=== PATIENT | male | born 1950 | race Caucasian/White ===

== ENCOUNTER → 2019-10-01 10:41 | Outpatient (BNVA) | payer MEDICARE, SELFPAY | PROVIDERS: Family Provider Nurse Practitioner Family; PCP Nurse Practitioner Family; Visit Provider Registered Nurse | DX: E11.9 Type 2 diabetes mellitus without complications (principal) | CPT/HCPCS: 80053; 80061; 83036 ==

== ENCOUNTER → 2020-03-02 11:54 | Outpatient (BNVA) | payer MEDICARE, SELFPAY | PROVIDERS: Family Provider Nurse Practitioner Family; PCP Nurse Practitioner Family; Visit Provider Registered Nurse | DX: E11.9 Type 2 diabetes mellitus without complications (principal); I10 Essential (primary) hypertension | CPT/HCPCS: 83036 ==

== ENCOUNTER 2020-04-28 14:48 | Emergency (ER) | payer MEDICARE, SELFPAY ==
[2020-04-28 15:00] VITALS: BP 164/65; PULSE 62; RESP 14; TEMP 37.2; O2SAT 96; BMI 37.3
--- NOTE | 2020-04-28 15:06 | ECG_ITS ---
[facility] Test Date: 2020-04-28 Pat Name: Angelo Pablo Department: Room: Gender: Male Certified Medicine Aide: WAQAR : 1950 Requested By: Lizzy Haq Order Number: [id number] Reading MD: Measurements Intervals [place] Rate: 62 P: 44 RI: 168 QRS: 21 QRSD: 136 T: 23 QT: 416 QTc: 424 Interpretive Statements SINUS RHYTHM RIGHT BUNDLE BRANCH BLOCK [120+ ms QRS DURATION, UPRIGHT V1, 40+ ms S IN I/aVL/V4/V5/V6] No previous ECG available for comparison [id number]
--- NOTE | 2020-04-28 15:07 | XR_ITS ---
WS: [id number] Exam: XR chest 1V portable [id number] Date/Time of Exam: 04/28/2020 3:07 PM Reason For Exam: cp Findings: No priors. The lungs are clear and fully expanded. Cardiomediastinal structures are unremarkable for technique. No pleural effusions. Mild pleural thickening noted along the lower lateral left pleural cavity. Jodi toring leads superimpose the chest. XR/XR chest 1V portable [id number] IMPRESSION: 1. No acute cardiopulmonary finding.
[2020-04-28 15:26] VITALS: O2SAT 94
[2020-04-28 15:32] LABS: Basophils % 0.3 %; Eosinophils % 0.3 %; Hematocrit 44.6 % (42.0-52.0); Lymphocytes # 1.1 10^3/uL (0.8-4.8); Lymphocytes % 14.2 %; Mean Corpuscular HGB Conc 33.6 g/dL (30.0-36.0); Mean Corpuscular Hemoglobin 31.3 pg (28.0-34.0); Mean Corpuscular Volume 93.1 fL (80-94); Mean Platelet Volume 9.5 fL (7.4-10.4); Monocytes # 0.4 10^3/uL (0.2-0.9); Monocytes % 5.8 %; Nucleated Red Blood Cells % 0 %; Platelet Count 225 10^3/cmm (130-400); Red Blood Count 4.79 10^6/uL (4.1-5.3); Red Cell Distribution Width 12.9 % (12.1-15.1); White Blood Count 7.5 10^3/uL (4.0-10.0)
--- NOTE | 2020-04-28 15:34 | W.ED.CHESTPA ---
HPI - Chest Pain General: Chief Complaint: Chest Pain Stated Complaint: CHEST PAIN Time Seen by Provider: 04/28/20 15:06 Source: patient Mode of arrival: ambulatory Limitations: no limitations History of Present Illness: HPI narrative: 69-year-old male who states that he has been having indigestion over the last 2 days. He states he had a burning sensation and a lot of belching over the last 2 days. He does not take any antacids. He states he is concerned it could be his heart because it radiates to his chest. He denies any shortness of breath. He denies any nausea. Denies any worsening improving factors. Associated symptoms: Reports abdominal pain and nausea; Deny dyspnea or fever(s) Review of Systems Const: Denies: fever(s), chills, body aches or change in appetite Eyes: Denies: blurry vision or eye discomfort ENMT: Denies: throat pain or dental pain Card: Denies: chest pain Resp: Denies: dyspnea GI: Reports: abdominal pain and nausea : Denies: dysuria Musc: Denies: neck pain or back pain Skin/Breast: Denies: rash Neuro: Denies: headache(s) Psych: Denies: depression Kirill/Lymph: Denies: easy bruising All/Imm: Denies: urticaria PFSH ED PFSH: Medical History Essential hypertension Type 2 diabetes mellitus Social History Smoking and tobacco status: never smoked Alcohol intake: never Adopted: No Caregiver/support person: No Lives independently: No Household members: spouse Marital status: Current occupational status: retired Current gender identity: Male Physical Exam Const: COMMON NORMALS: no acute distress, patient oriented x3 and healthy appearing HENMT: COMMON NORMALS: normocephalic and atraumatic HEAD & SCALP: normocephalic and atraumatic Eye: COMMON NORMALS: Equal, round and reactive pupils present and EOMs intact bilaterally PUPIL: Yes Equal, round and reactive pupils present Neck/C-Spine: COMMON NORMALS: full ROM and supple Chest: COMMONS NORMALS: normal inspection of the chest and normal palpation of entire chest wall Resp: COMMON NORMALS: normal respiratory effort, No retractions, No use of accessory muscles and clear to auscultation bilaterally AUSCULTATION: clear to auscultation bilaterally Cardio: COMMON NORMALS: regular rate, regular rhythm and No murmurs present (Cardio) RATE: regular rate RHYTHM: regular rhythm GI: COMMON NORMALS: Normal to inspection, nondistended, normoactive bowel sounds present, Soft to palpation, non-tender and no masses PALPATION: Yes Soft to palpation Extremity: COMMON NORMALS: normal to inspection and full ROM Neuro: COMMON NORMALS: patient oriented x3, moves all extremities and no focal motor deficits Psych: COMMON NORMALS: mental status grossly normal, Normal thought process present and cooperative THOUGHT PROCESS: Normal thought process present Skin: COMMON NORMALS: no rashes or lesions noted and no wounds GENERAL SKIN EXAM: no rashes or lesions noted Course Vital Signs: Vital signs: Vital Signs Temperature 99.0 F 04/28/20 15:00 Pulse Rate 59 L 04/28/20 18:45 Respiratory Rate 21 H 04/28/20 18:45 Blood Pressure 130/75 04/28/20 18:45 Pulse Oximetry 90 04/28/20 18:45 MDM - Chest Pain MDM Narrative: Medical decision making narrative: Angelo presents here with chest pain along with epigastric normal pain. Most of his pain seems to be gastric in nature and likely reflux. He has no signs of acute coronary syndrome and 2-hour troponin is negative. Is no signs of dissection or pulmonary embolism. He feels improved after GI cocktail will start him on Protonix. Patient is to follow-up his PCP in 3 to 5 days and return to ER if worsening. He understands agrees to plan. Lab Data: Labs: Lab Results 04/28/20 04/28/20 04/28/20 Range/Units 15:20 15:20 15:20 WBC 7.5 (4.0-10.0) 10^3/ uL RBC 4.79 (4.1-5.3) 10^6/u L Hgb 15.0 (11.7-16.6) g/dL Hct 44.6 (42.0-52.0) % MCV 93.1 (80-94) fL MCH 31.3 (28.0-34.0) pg MCHC 33.6 (30.0-36.0) g/dL RDW 12.9 (12.1-15.1) % Plt Count 225 (130-400) 10^3/c mm MPV 9.5 (7.4-10.4) fL Neut % (Auto) 79.0 % Lymph % (Auto) 14.2 % Gregg % (Auto) 5.8 % Eos % (Auto) 0.3 % Baso % (Auto) 0.3 % Neut # (Auto) 5.90 (1.8-7.7) 10^3/u L Lymph # (Auto) 1.1 (0.8-4.8) 10^3/u L Gregg # (Auto) 0.4 (0.2-0.9) 10^3/u L Eos # (Auto) 0.0 (0.0-0.8) 10^3/u L Baso # (Auto) 0.0 (0.0-0.1) 10^3/u L Nucleated RBC % (a uto) 0 % Nucleated RBCs # 0.0 /100WBC Sodium 135 L (136-145) mmol/L Potassium 4.3 (3.5-5.1) mmol/L Chloride 98 (98-107) mmol/L Carbon Dioxide 26 (22-29) mmol/L Anion Gap 15.3 (5-19) BUN 10 (8-23) mg/dL Creatinine 0.8 (0.7-1.2) mg/dL GFR Calculation 95.6 (90-130) mL/min Glucose 126 H (65-115) mg/dL Calculated Osmolal ity 281 L (285-295) mOsm/k g Calcium 9.6 (8.5-10.5) mg/dL Total Bilirubin 0.5 (0.15-1.2) mg/dL AST 33 (0-40) U/L ALT 32 (0-41) U/L Alkaline Phosphata se 70 (40-130) IU/L Troponin T Baselin e 23 H (0-15) ng/L Troponin T 120 Min los (0-15) ng/L Delta Troponin T (0-10) ABS# Total Protein 6.8 (6.6-8.7) g/dL Albumin 4.4 (3.5-5.2) g/dL Globulin 2.4 (1.3-4.6) g/dL Lipase 21 (13-60) U/L 04/28/ Range/Units 17:27 WBC (4.0-10.0) 10^3/ uL RBC (4.1-5.3) 10^6/u L Hgb (11.7-16.6) g/dL Hct (42.0-52.0) % MCV (80-94) fL MCH (28.0-34.0) pg MCHC (30.0-36.0) g/dL RDW (12.1-15.1) % Plt Count (130-400) 10^3/c mm MPV (7.4-10.4) fL Neut % (Auto) % Lymph % (Auto) % Gregg % (Auto) % Eos % (Auto) % Baso % (Auto) % Neut # (Auto) (1.8-7.7) 10^3/u L Lymph # (Auto) (0.8-4.8) 10^3/u L Gregg # (Auto) (0.2-0.9) 10^3/u L Eos # (Auto) (0.0-0.8) 10^3/u L Baso # (Auto) (0.0-0.1) 10^3/u L Nucleated RBC % (a uto) % Nucleated RBCs # /100WBC Sodium (136-145) mmol/L Potassium (3.5-5.1) mmol/L Chloride (98-107) mmol/L Carbon Dioxide (22-29) mmol/L Anion Gap (5-19) BUN (8-23) mg/dL Creatinine (0.7-1.2) mg/dL GFR Calculation (90-130) mL/min Glucose (65-115) mg/dL Calculated Osmolal ity (285-295) mOsm/k g Calcium (8.5-10.5) mg/dL Total Bilirubin (0.15-1.2) mg/dL AST (0-40) U/L ALT (0-41) U/L Alkaline Phosphata se (40-130) IU/L Troponin T Baselin e (0-15) ng/L Troponin T 120 Min los 25.40 H (0-15) ng/L Delta Troponin T 2.40 (0-10) ABS# Total Protein (6.6-8.7) g/dL Albumin (3.5-5.2) g/dL Globulin (1.3-4.6) g/dL Lipase (13-60) U/L Imaging Data^: CXR: Attestation: I personally reviewed and interpreted this imaging study as follows: My impression: no acute abnormality EKG Data^: EKG 1: Attestation: I personally reviewed and interpreted this EKG as follows: EKG interpretation date: 04/28/20 EKG interpretation time: 14:58 Interpretation: nsr hr [address] or t wave abnormalities qrs 136 qtc 421 EKG 2: Attestation: I personally reviewed and interpreted this EKG as follows: EKG interpretation date: 04/28/20 EKG interpretation time: 17:24 Interpretation: nsr hr [address] or t wave abnormalities qrs 142 qtc 424 Discharge Plan Discharge Patient Disposition: Home Clinical Impression: Atypical chest pain Abdominal pain Qualifiers: Abdominal location: epigastric Qualified Code(s): R10.13 - Epigastric pain Condition: Stable Prescriptions: New Protonix 40 mg tablet,delayed release (DR/EC) 40 mg PO DAILY Qty: 60 RF: 0 No Action metformin 500 mg tablet 500 mg PO BID RF: 0 lisinopril 20 mg tablet 20 mg PO DAILY RF: 0 Discharge Orders: Discharge Order (Routine); Ordered 04/28/20 Ordered By: Lizzy Haq Referrals: Greyson Ramires FNP [Primary Care Provider] - Discharge Diet: Advance as tolerated Discharge Activity: Resume usual activity Patient Instructions: Abdominal Pain (ED) Coding Level of Care Code ED Transmission Systems Operator for Chg Fwd Exam Comprehensive
[2020-04-28] MEDS: ondansetron 2 mg/ML SDV 2 mL 4 MG IVP (15:39)
[2020-04-28] MEDS: lidocaine 2% viscous 15 ML, aluminum-mag hydrox-simethicon 30 ML, sucralfate oral liq 1 GM PO (15:39)
[2020-04-28 15:43] VITALS: BP 156/96; PULSE 66; O2SAT 94
[2020-04-28 15:55] LABS: Alanine Aminotransferase 32 U/L (0-41); Albumin Level 4.4 g/dL (3.5-5.2); Alkaline Phosphatase 70 IU/L (40-130); Blood Urea Nitrogen 10 mg/dL (8-23); Calcium 9.6 mg/dL (8.5-10.5); Carbon Dioxide 26 mmol/L (22-29); Chloride 98 mmol/L (98-107); Globulin 2.4 g/dL (1.3-4.6); Glomerular Filtration Rate 95.6 mL/min (90-130); Glucose 126 mg/dL (65-115); Lipase 21 U/L (13-60); Osmolality Calculated 281 mOsm/kg (285-295); Sodium 135 mmol/L (136-145); Total Bilirubin 0.5 mg/dL (0.15-1.2); Total Protein 6.8 g/dL (6.6-8.7); Troponin(5th) Baseline 23 ng/L (0-15)
[2020-04-28 16:04] LABS: Anion Gap 15.3 (5-19); Aspartate Amino Transferase 33 U/L (0-40); Potassium 4.3 mmol/L (3.5-5.1)
--- NOTE | 2020-04-28 17:06 | ECG_ITS ---
[facility] Test Date: 2020-04-28 Pat Name: Angelo Pablo Department: Room: Gender: Male Fleet Dispatch Manager: : 1950 Requested By: Lizzy Haq Order Number: [id number] Reading MD: Measurements Intervals [place] Rate: 65 P: 38 OK: 175 QRS: 46 QRSD: 142 T: 48 QT: 413 QTc: 431 Interpretive Statements SINUS RHYTHM INDETERMINATE AXIS RIGHT BUNDLE BRANCH BLOCK [120+ ms QRS DURATION, UPRIGHT V1, 40+ ms S IN I/aVL/V4/V5/V6] No previous ECG available for comparison [id number]
[2020-04-28 17:09] VITALS: BP 148/81; PULSE 64; O2SAT 91
[2020-04-28 18:45] VITALS: BP 130/75; PULSE 59; RESP 21; O2SAT 90
[2020-04-28 19:04] VITALS: BP 123/73; PULSE 63; RESP 14; O2SAT 94
== END 2020-04-28 19:05 | disposition home or self-care (01) ==
PROVIDERS: Emergency Provider Emergency Medicine; Family Provider Nurse Practitioner Family; PCP Nurse Practitioner Family
DX: R07.89 Other chest pain (principal); R10.13 Epigastric pain; I10 Essential (primary) hypertension; E11.9 Type 2 diabetes mellitus without complications; Z79.84 Long term (current) use of oral hypoglycemic drugs
CPT/HCPCS: 12345; 36415; 71045; 80053; 83690; 84484; 85025; 93005; 96374; 96375; 99283; J2405

== ENCOUNTER → 2020-12-03 09:39 | Outpatient (BNVA) | payer MEDICARE, SELFPAY | PROVIDERS: Family Provider Nurse Practitioner Family; PCP Registered Nurse; Visit Provider Registered Nurse | DX: E11.9 Type 2 diabetes mellitus without complications (principal); E78.5 Hyperlipidemia, unspecified; I10 Essential (primary) hypertension; K21.9 Gastro-esophageal reflux disease without esophagitis | CPT/HCPCS: 80053; 80061; 83036; 85025 ==

== ENCOUNTER → 2021-06-01 09:54 | Outpatient (BNVA) | payer MEDICARE, SELFPAY | PROVIDERS: Family Provider Nurse Practitioner Family; PCP Registered Nurse; Visit Provider Registered Nurse | DX: E11.9 Type 2 diabetes mellitus without complications (principal); K21.9 Gastro-esophageal reflux disease without esophagitis; I10 Essential (primary) hypertension | CPT/HCPCS: 80053; 83036 ==

== ENCOUNTER → 2021-10-11 10:44 | Outpatient (BNVA) | payer MEDICARE, SELFPAY | PROVIDERS: Family Provider Nurse Practitioner Family; PCP Registered Nurse; Visit Provider Registered Nurse | DX: E11.9 Type 2 diabetes mellitus without complications; I10 Essential (primary) hypertension | CPT/HCPCS: 80053; 80061; 83036; 85025 ==

== ENCOUNTER → 2022-01-04 10:32 | Outpatient (BNVA) | payer MEDICARE, SELFPAY | PROVIDERS: Family Provider Nurse Practitioner Family; PCP Registered Nurse; Visit Provider Registered Nurse | DX: E11.9 Type 2 diabetes mellitus without complications (principal) | CPT/HCPCS: 80053; 83036 ==

== ENCOUNTER → 2022-04-08 08:44 | Outpatient (BNVA) | payer MEDICARE, SELFPAY | PROVIDERS: Family Provider Nurse Practitioner Family; PCP Registered Nurse; Visit Provider Registered Nurse | DX: E11.9 Type 2 diabetes mellitus without complications (principal); I10 Essential (primary) hypertension; G47.00 Insomnia, unspecified | CPT/HCPCS: 80053; 80061; 83036; 85025 ==

== ENCOUNTER → 2023-04-13 08:51 | Outpatient (BNVA) | payer MEDICARE, SELFPAY | PROVIDERS: Family Provider Nurse Practitioner Family; PCP Registered Nurse; Visit Provider Registered Nurse | DX: E11.9 Type 2 diabetes mellitus without complications (principal); E78.5 Hyperlipidemia, unspecified; I10 Essential (primary) hypertension; M19.90 Unspecified osteoarthritis, unspecified site; G47.00 Insomnia, unspecified; G56.93 Unspecified mononeuropathy of bilateral upper limbs; M47.812 Spondylosis without myelopathy or radiculopathy, cervical region; K21.9 Gastro-esophageal reflux disease without esophagitis | CPT/HCPCS: 80053; 80061; 83036; 85025 ==

== ENCOUNTER 2023-12-29 11:11 | Inpatient (IN) | payer MEDICARE, SELFPAY ==
[2023-12-29] VITALS (15 sets, daily range): BP systolic 92–131; BP diastolic 50–76; PULSE 60–95; RESP 16–20; TEMP 36.1–36.6; O2SAT 89–96; BMI 37.0
--- NOTE | 2023-12-29 11:25 | USR_ITS ---
PROCEDURE INFORMATION: Exam: US Duplex Left Lower Extremity Arteries Or Arterial Bypass Grafts Exam date and time: 12/29/2023 12:35 PM Age: 73 years old Clinical indication: Condition or disease; Other: Black toe; Additional info: Gangrenous toe, PT having labs drawn and ekg done @1200 will check back by after bm TECHNIQUE: Imaging protocol: Left Real-time duplex scan of the arteries or arterial bypass grafts of the left lower extremity with 2-D zhu scale, color Doppler flow and spectral waveform analysis. Images documented and saved. COMPARISON: CR XR foot LT min 3V* [id number] 12/29/2023 12:06 PM FINDINGS: Left common femoral artery: Less than 50% visible luminal narrowing. Normal waveform. Peak velocity 138 cm/s. Left profunda femoris artery: Less than 50% visible luminal narrowing. Normal waveform. Peak velocity 89 cm/s. Left superficial femoral artery: Less than 50% visible luminal narrowing. Normal waveforms. Peak velocity is 113 cm/s. Left popliteal artery: No visible luminal narrowing. Normal waveform. Peak velocity 86 cm/s. Left calf/foot arteries: Normal waveforms are seen in the left peroneal, posterior tibial, and dorsalis pedis arteries. US/[place] [id number] IMPRESSION: No sign of hemodynamically significant arterial stenosis in the left lower extremity.
--- NOTE | 2023-12-29 11:25 | XR_ITS ---
WS: [id number] Exam: XR foot LT min 3V* [id number] Date/Time of Exam: 12/29/2023 11:25 AM Reason For Exam: gangrenous L great toe No fracture or dislocation. Soft tissue ulceration and edema of the great toe noted. There is some de mineralization of the distal phalanx of the great toe but no cortical destruction is noted at this ti me. Degenerative changes in the IP joints and midfoot joints. Very small amount of soft tissue air no junie in the distal great toe. XR/XR foot LT min 3V* [id number] IMPRESSION: 1. Soft tissue swelling and ulceration of the great toe with a small amount of soft tissue air. This would suggest infection that may be secondary to gas-form ing bacteria. No definite cortical destruction noted but there is some deminera lization of bone of the distal tuft. 2. Mild degenerative changes. No fracture.
--- NOTE | 2023-12-29 11:53 | ECG_ITS ---
[facility] Test Date: 2023-12-29 Pat Name: Angelo Pablo Department: Room: Gender: Male Vessel Specialist: : 1950 Requested By: Stewart Garcia Order Number: [id number] Jazmyn MD: Eliseo Begum M.D. Measurements Intervals [place] Rate: 82 P: 48 FL: 169 QRS: -72 QRSD: 134 T: 48 QT: 367 QTc: 431 Interpretive Statements SINUS RHYTHM RIGHT BUNDLE BRANCH BLOCK [120+ ms QRS DURATION, UPRIGHT V1, 40+ ms S IN I/aVL/V4/V5/V6] LEFT ANTERIOR FASCICULAR BLOCK [QRS AXIS <= -45, QR IN I, RS IN II] Compared to ECG 04/28/2020 17:24:52 Left anterior fascicular block now present Indeterminate axis no longer present Electronically Signed On 12-29-2023 20:41:26 CDT by Eliseo Begum M.D. [id number]
--- NOTE | 2023-12-29 12:08 | ED_ITS ---
HPI - Extremity Problem 2 General: Chief complaint: Extremity Injury, Lower Stated complaint: left foot pain Time Seen by Provider: 12/29/23 11:25 Source: patient Mode of arrival: ambulatory History of Present Illness: 73-year-old male presents emergency room at the direction of his primary care provider. Patient has a diabetic toe ulcer on the left great toe he was seen a week ago and started on Bactrim and follow-up he was seen today as very foul- smelling mucousy wet drainage. He denies any fever sweats or chills. Patient is a type II diabetic he has not noticed significant worsening of his blood sugar control recently but is not very aggressive with his monitoring. MD Complaint: extremity swelling Onset (ago): week(s) Location: left and toe (Great) Quality: aching Relieving factors: nothing Exacerbating factors: nothing Associated symptoms: Deny arthralgias, chest pain, fever(s), myalgias, rash or short of breath Review of Systems 2 Const: Denies: fever(s) or chills Card: Denies: chest pain Resp: Denies: dyspnea GI: Denies: abdominal pain : Denies: dysuria, urinary frequency or urinary urgency Musc: Denies: neck pain or back pain Skin/Breast: Reports: erythema and sores; Denies: rash PFSH ED 2 PFSH: Medical History Has spouse with disability Essential hypertension Type 2 diabetes mellitus Social History Smoking and tobacco/nicotine status: never used tobacco/nicotine Alcohol intake: never Substance/Drug Use: never Adopted: No Caregiver/support person: No Lives independently: No Household members: spouse Marital status: Current occupational status: retired Do you think of yourself as: Straight/Heterosexual Current gender identity: Male Physical Exam 2 Const: GENERAL APPEARANCE: cooperative and comfortable O RIENTATION/CONSCIOUSNESS: Yes awake, Yes oriented to person, Yes oriented to place and Yes oriented to time HENMT: COMMON NORMALS: normocephalic, atraumatic and hearing grossly normal bilaterally HEAD & SCALP: normocephalic and atraumatic Resp: COMMON NORMALS: normal respiratory effort, No retractions, No use of accessory muscles and clear to auscultation bilaterally AUSCULTATION: clear to auscultation bilaterally Cardio: COMMON NORMALS: regular rate, regular rhythm and No murmurs present (Cardio) RATE: regular rate RHYTHM: regular rhythm GI: COMMON NORMALS: Soft to palpation and No hepatosplenomegaly present A USCULTATION: Yes normoactive bowel sounds PALPATION: Yes Soft to palpation, No Tenderness to palpation present (GI), No Guarding due to palpation present (GI) and Yes No hepatosplenomegaly present Extremity: OTHER: Left great toe red and inflamed swollen indurated skin multiple ulcerations over the toe. Foul-smelling no exposed bone. Neuro: SENSORIUM/ORIENTATION: Yes oriented to person, Yes oriented to place and Yes oriented to time Skin: COMMON NORMALS: no rashes or lesions noted GENERAL SKIN EXAM: no rashes or lesions noted Course 2 Vital Signs: Vital signs: Vital Signs Temperature 97.6 F 12/29/23 12:04 Pulse Rate 95 12/29/23 12:04 Respiratory Rate 18 12/29/23 12:04 Blood Pressure 116/64 12/29/23 12:04 Pulse Oximetry 92 12/29/23 12:04 Oxygen Delivery Me thod Room Air 12/29/23 12:04 MDM - Extremity (Nontraumatic) Medical Decision Making Cultures done. Foot x-ray shows some demineralization per the radiology report suspicious for early osteomyelitis. There is small amount of air at the distal toe and the subcutaneous tissue. Arterial duplex of the left lower extremity is still pending. Discussed with Dr. Moeller. Patient been cultured started on vancomycin he is coming to see the patient patient is anything since around 7:00 this morning will keep him n.p.o. At best he will need a debridement possibly even early amputation. Dr. Moeller did not request any further imaging. Will admit through Dr. Smith, consult . Medical Records I reviewed the patient's medical records. Lab Data I reviewed the patient's lab results. 12/29/23 12:06 12/29/23 12:06 Radiology Impressions Foot X-Ray 12/29/23 11:25 IMPRESSION: 1. Soft tissue swelling and ulceration of the great toe with a small amount of soft tissue air. This would suggest infection that may be secondary to gas- forming bacteria. No definite cortical destruction noted but there is some demineralization of bone of the distal tuft. 2. Mild degenerative changes. No fracture. Laboratory Results WBC 13.94 10^3/uL (3.29-11.43) H 12/29/23 12:06 RBC 4.38 10^6/uL (3.85-5.65) 12/29/23 12:06 Hgb 13.20 g/dL (11.27-16.99) 12/29/23 12:06 Hct 39.4 % (37-53) 12/29/23 12:06 MCV 90.0 fl (82-101) 12/29/23 12:06 MCH 30.1 pg (27-33) 12/29/23 12:06 MCHC 33.5 g/dL (30-55) 12/29/23 12:06 RDW 13.4 % (12.1-15.1) 12/29/23 12:06 Plt Count 449 10^3/cmm (157-399) H 12/29/23 12:06 MPV 9.0 fL (7.4-10.4) 12/29/23 12:06 Neut % (Auto) 86.5 % 12/29/23 12:06 Lymph % (Auto) 7.5 % 12/29/23 12:06 [place] % (Auto) 4.2 % 12/29/23 12:06 Eos % (Auto) 0.1 % 12/29/23 12:06 Baso % (Auto) 0.3 % 12/29/23 12:06 Neut # (Auto) 12.07 10^3/uL (1.8-7.7) H 12/29/23 12:06 Lymph # (Auto) 1.1 10^3/uL (0.8-4.8) 12/29/23 12:06 [place] # (Auto) 0.6 10^3/uL (0.2-0.9) 12/29/23 12:06 Eos # (Auto) 0.0 10^3/uL (0.0-0.8) 12/29/23 12:06 Baso # (Auto) 0.0 10^3/uL (0.0-0.1) 12/29/23 12:06 Nucleated RBC % (auto) 0 % 12/29/23 12:06 Nucleated RBCs # 0.0 /100WBC 12/29/23 12:06 All radiology interpretation(s) finalized by discharge Discharge Plan Discharge Patient Disposition: Admitted As Inpatient Clinical Impression: Diabetic foot ulcer, Type 2 diabetes mellitus, Mild acid reflux, Cellulitis Condition: Stable Prescriptions: No Action lisinopril-hydrochlorothiazide 20-25 mg tablet 1 tab PO DAILY Qty: 90 4RF meloxicam 15 mg tablet See Rx Instructions .ROUTE .COMPLEX Qty: 90 4RF Dose Instruction: TAKE 1 TABLET BY MOUTH DAILY Rx Instructions: TAKE 1 TABLET BY MOUTH DAILY metformin 850 mg tablet 850 mg PO BID 90 Days Qty: 180 4RF pantoprazole 40 mg tablet,delayed release (DR/EC) 40 mg PO .take at bedtime 90 Days Qty: 90 4RF Rx Instructions: Take on empty stomach Januvia 25 mg tablet 25 mg PO DAILY Qty: 90 4RF Rx Instructions: 340B. PLEASE SEND BY MAIL zolpidem [Ambien] 10 mg tablet 10 mg PO DAILY 30 Days Qty: 30 5RF sulfamethoxazole-trimethoprim [Bactrim DS] 800-160 mg tablet 1 tab PO BID 10 Days Qty: 20 0RF atorvastatin 20 mg tablet 20 mg PO DAILY 90 Days Qty: 90 4RF Referrals: Tucker Aragon FNP [Primary Care Provider] - Greyson Ramires FNP [Family Provider] - Coding Level of Care Code ED Supervisor Quality Control for Kimberly Elizalde
[2023-12-29 12:23] LABS: Basophils % 0.3 %; Eosinophils % 0.1 %; Hematocrit 39.4 % (37-53); Lymphocytes # 1.1 10^3/uL (0.8-4.8); Lymphocytes % 7.5 %; Mean Corpuscular HGB Conc 33.5 g/dL (30-55); Mean Corpuscular Hemoglobin 30.1 pg (27-33); Monocytes # 0.6 10^3/uL (0.2-0.9); Monocytes % 4.2 %; Neutrophils # 12.07 10^3/uL (1.8-7.7); Neutrophils % 86.5 %; Nucleated Red Blood Cells % 0 %; Platelet Count 449 10^3/cmm (157-399); Red Blood Count 4.38 10^6/uL (3.85-5.65); Red Cell Distribution Width 13.4 % (12.1-15.1); White Blood Count 13.94 10^3/uL (3.29-11.43)
--- NOTE | 2023-12-29 12:28 | P.CONIM_ITS ---
Providers/Reason For Consult 2 Consulting Physician/Specialty*: Pj Moeller D.P.M. Reason for Consult*: Left diabetic foot infection with cellulitis and acute osteomyelitis of the left hallux Primary Care Provider: BARBIE Melara History of Present Illness History of Present Illness Boy Pablo is a 73 year old male directed to the emergency department by his primary care due to worsening of a left great toe diabetic ulceration which failed outpatient wound care and outpatient antibiotics. Was prescribed Bactrim DS on 12/21/2023 he has had a worsening of redness, swelling and foul odor to the left great toe. Patient last ate breakfast this morning at 7:00 AM. Patient denies any subjective nausea, vomiting, fever, chills, shortness of breath or chest pain. Last A1c 7.3 taken on April 13, 2023. No history of revascularization, patient denies tobacco use. Review of Systems 2 General: Reports: 10 or more systems reviewed and unremarkable except in HPI and below Const: Denies: fever(s) or chills Eyes: Denies: change in vision Card: Denies: chest pain or palpitations Resp: Denies: dyspnea or productive cough GI: Denies: abdominal pain, nausea or vomiting : Denies: flank pain Musc: Reports: extremity swelling, joint stiffness and deformity Skin/Breast: Reports: erythema, sores, changes in skin color, dry skin, nail changes and change in hair Neuro: Reports: numbness in extremities, sensory changes and difficulty walking Psych: Denies: suicidal ideation Endo: Denies: change in body appearance Kirill/Lymph: Denies: tender lymph nodes Medications/Allergies Home Medications Medication Instructions Recorded Confirmed Last Taken Type lisinopril 20 1 tab PO DAILY #90 tabs 04/13/23 12/29/23 12/29/23 Rx mg-hydrochlorothiazide 25 mg tablet metformin 850 mg tablet 850 mg PO BID 90 days #180 tabs 04/13/23 12/29/23 12/29/23 Rx sitagliptin phosphate 25 mg tablet 25 mg PO DAILY #90 tabs 04/13/23 12/29/23 12/28/23 Rx (Januvia) atorvastatin 20 mg tablet 20 mg PO DAILY 90 days #90 tabs 06/16/23 12/29/23 12/29/23 Rx pantoprazole 40 mg tablet,delayed 40 mg PO BEDTIME 12/29/23 12/29/23 12/28/23 History release Allergies Allergy/AdvReac Type Severity Reaction Status Date / Time No Known Allergies Allergy Verified 12/29/23 09:33 PFSH Acute 2 PFSH: Medical History Has spouse with disability Essential hypertension Type 2 diabetes mellitus Social History Smoking and tobacco/nicotine status: never used tobacco/nicotine Alcohol intake: never Substance/Drug Use: never Adopted: No Caregiver/support person: No Lives independently: No Household members: spouse Marital status: Current occupational status: retired Do you think of yourself as: Straight/Heterosexual Current gender identity: Male Vitals/I&O/Wt Last Vital Signs Temp 97.6 F 12/29/23 12:04 Pulse 95 12/29/23 12:04 Resp 18 12/29/23 12:04 BP 116/64 12/29/23 12:04 Pulse Ox 92 12/29/23 12:04 O2 Del Method Room Air 12/29/23 12:04 Weight last 48 hrs Weight 258 lb Physical Exam 2 Narrative: GENERAL: Patient is alert and oriented ?3 and in no acute distress. The following is a focused bilateral lower extremity exam. VASCULAR: Dorsalis pedis palpable bilaterally. Posterior tibial arteries palpable. Capillary refill less than 5 seconds to the left second toe and to the right great toe, delayed left hallux. Calf is supple and nontender proximally and distally. Edema to the left foot pitting in nature. NEUROLOGICAL: Protective sensation intact 0/10 sites, tested with Beatty Anabel monofilament to bilateral feet. DERMATOLOGICAL: Full-thickness wound probes to bone left foot x 2, wound probes to bone with fibrotic boggy base at the dorsal medial aspect of the left hallux interphalangeal joint measures 1 cm x 1.2 cm and probes to interphalangeal joint with purulent drainage and foul malodor. Wound located at the plantar tuft of the left great toe with fibrotic, devitalized and eschar base probes directly to distal phalanx plantarly and measures 2.3 cm x 1.8 cm x 0.4 cm. There is erythematous streaking proximally to the level of the left midfoot. Crepitus with soft tissue palpation of the left distal plantar great toe plantar wound. MUSCULOSKELETAL: No pain with debridement or palpation of left great toe secondary to neuropathy. Hallux valgus bilaterally. Pes planus foot type bilaterally. Muscle strength +5 in all 3 planes bilateral foot and ankle. CARDIOVASCULAR: S1, S2, normal rate, normal rhythm. Dorsalis pedis and posterior tibial arteries palpable. LUNGS: Clear to auscltation, no use of acessory muscles, no crackles or wheezes. Data 12/29/23 12:06 12/29/23 12:06 A&P Assessment and plan (1) Diabetic peripheral neuropathy associated with type 2 diabetes mellitus: (2) Acute osteomyelitis of left foot: (3) Cellulitis: Qualifiers: Laterality: left Site of cellulitis: extremity Site of cellulitis of extremity: toe Qualified Code(s): L03.032 - Cellulitis of left toe (4) Gas gangrene: Plan 73-year-old diabetic male presents with acute osteomyelitis and gas gangrene left great toe. Admitted to hospital service for surgical intervention. Labs in ED WBC 13.94, ESR 21 CRP 21.2 mg/L temperature 97.6. X-ray left foot 3 views taken in emergency department lateral view shows soft tissue of eczema plantar tuft of left hallux. Oblique view of left hallux at the medial condyle shows bony destruction with fragmentation consistent with acute osteomyelitis. Patient examined and evaluated, findings and treatment options discussed with patient at length. Discussed limb salvage consisting of surgical debridement, bone culture, likely PICC line and wound care clinic versus left hallux amputation. Patient after discussing risks and benefits of each option would like to proceed with a more aggressive amputation at today's visit his thoughts are that this would be better source control and give him increased chance of avoiding ascending infection into the foot which ultimately could lead to higher level of amputation. I reviewed at length with the patient, the risks, potential complications, benefits, alternatives, expectations, and typical outcomes associated with the surgery. The risks and potential complications were explained in detail, including but not limited to infection, wound dehiscence or soft tissue complications, bleeding and hematoma, chronic edema, neuritis or nerve damage producing numbness or chronic pain, CRPS, failure to relieve pain or worsening pain, thick / painful / unsightly scar, limited motion / stiffness, malposition, delayed union, malunion, or nonunion, fracture, reaction to implants, anesthetic complications, venous thromboembolism, and deformity recurrence. I discussed the notion of no regrets with the patient as it pertains to complications and outcomes. The patient seemed to understand the nature of the proposed care and required convalescence. They asked appropriate questions, answered to their satisfaction. They are aware no guarantees can be made as to a satisfactory outcome and they understand there may be other possible unforeseen complications or outcomes not listed here that will be treated accordingly if they arise. There were no written or implied guarantees given to the patient. They gave informed consent to proceed. Patient to be n.p.o. Scheduled for left great toe amputation 3:00 today, had breakfast at 7:00 AM. Nonweightbearing left foot. Anticipating primary closure today pending intraoperative findings. Coding Level of Care Code Acute Code for [facility] Fwd Diagnoses Diabetic peripheral neuropathy associated with type 2 diabetes mellitus E11.42 Acute osteomyelitis of left foot M86.172 Cellulitis of toe of left foot L03.032 Laterality: left Site of cellulitis: extremity Site of cellulitis of extremity: toe Gas gangrene A48.0
[2023-12-29] MEDS: vancomycin 1,000 MG in sodium chloride 0.9% 250 ML 250 MG IV (12:34)
--- NOTE | 2023-12-29 12:38 | PM.HP ---
Providers/Chief Complaint Primary Care Provider: BARBIE Melara Chief Complaint: left foot pain History of Present Illness Boy Pablo is a 73 year old male who present to the hospital for left foot swelling and redness. Patient is stating that he only takes 2 medications oral antihyperglycemic's, he has never been on insulin, no history of HI or CHF. Stating that he started noticing worsening of his diabetic foot ulcer for about 2 weeks he has not noticed any fever, nausea vomiting rigors or chills. Lives with his , his has brain tumor. He does not know his previous A1c level. Stating that his blood sugar has been ranging around 160s these days. This morning it was 159 mg/dL. Patient uses a walker for ambulation. In the ER he has been diagnosed with gas gangrene Dr. Moeller has been consulted. Outpatient he was put on Bactrim but x-ray showing gas gangrene Review of Systems Const: Reports: chills and fatigue; Denies: fever(s) Eyes: Denies: change in vision ENMT: Denies: throat pain Card: Denies: chest pain Resp: Denies: dyspnea GI: Denies: abdominal pain : Denies: flank pain Medications/Allergies Home Medications Medication Instructions Recorded Confirmed Last Taken Type lisinopril 20 1 tab PO DAILY #90 tabs 04/13/23 12/29/23 Unknown Rx mg-hydrochlorothiazide 25 mg tablet meloxicam 15 mg tablet See Rx Instructions .Route 04/13/23 12/29/23 Unknown Rx .COMPLEX #90 tabs metformin 850 mg tablet 850 mg PO BID 90 days #180 tabs 04/13/23 12/29/23 Unknown Rx pantoprazole 40 mg tablet,delayed 40 mg PO .take at bedtime 90 days 04/13/23 12/29/23 Unknown Rx release #90 tabs sitagliptin phosphate 25 mg tablet 25 mg PO DAILY #90 tabs 04/13/23 12/29/23 Unknown Rx (Januvia) zolpidem 10 mg tablet (Ambien) 10 mg PO DAILY 30 days #30 tabs 04/13/23 12/29/23 Unknown Rx atorvastatin 20 mg tablet 20 mg PO DAILY 90 days #90 tabs 06/16/23 12/29/23 Unknown Rx sulfamethoxazole 800 1 tab PO BID 10 days #20 tabs 12/21/23 12/29/23 Unknown Rx mg-trimethoprim 160 mg tablet (Bactrim DS) Allergies Allergy/AdvReac Type Severity Reaction Status Date / Time No Known Allergies Allergy Verified 12/29/23 09:33 PFSH Acute PFSH: Medical History Has spouse with disability Essential hypertension Type 2 diabetes mellitus Social History Smoking and tobacco/nicotine status: never used tobacco/nicotine Alcohol intake: never Substance/Drug Use: never Adopted: No Caregiver/support person: No Lives independently: No Household members: spouse Marital status: Current occupational status: retired Do you think of yourself as: Straight/Heterosexual Current gender identity: Male Vitals/I&O/Wt Last Vital Signs Temp 97.6 F 12/29/23 12:04 Pulse 95 12/29/23 12:04 Resp 18 12/29/23 12:04 BP 116/64 12/29/23 12:04 Pulse Ox 92 12/29/23 12:04 O2 Del Method Room Air 12/29/23 12:04 Weight last 48 hrs Weight 117.027 kg Physical Exam Narrative: Diabetic neuropathy Left foot swelling extending all the way up to his knee Wet gangrene Significant sloughing of skin with exposed underlying subcutaneous tissue, fat layer and muscle I have decided not to probe because Dr. Moeller is coming to evaluate the patient Patient is hemodynamically stable currently awake and alert Currently on room air Awake and alert GCS 15 S1, S2 Nonfocal neuroexam Morbidly obese Data 12/29/23 12:06 12/29/23 12:06 A&P Assessment and plan (1) Gas gangrene: (2) Type 2 diabetes mellitus: Qualifiers: Diabetes mellitus complication status: without complication Diabetes mellitus senior care insulin use: without senior care use Qualified Code(s): E11.9 - Type 2 diabetes mellitus without complications (3) Essential hypertension: (4) Cellulitis: Plan Sepsis related to gas gangrene Afebrile Leukocytosis noted Dr. Moeller consulted Start sepsis protocol Blood cultures taken Vancomycin administered Lactic acid is high Criteria met with pulse above 90, leukocytosis lactic acid with endorgan damage Source is left first toe gas gangrene Will keep him on IV fluids Request echo as well to know more about his EF I will keep him on clindamycin along vancomycin and Zosyn Will follow-up with bone cultures RCRI: Class I risk for history of diabetes no history of HI or CHF For pain management I would use p.o. regimen of morphine along with Dilaudid for as needed basis Add bowel regimen Check A1c level Check B12 Goals of care discussed with the patient stating he is DNR/DNI N.p.o. for now After surgical intervention will start consistent carb diet with insulin sliding scale Mild BUDDY which could be related to pseudohypecreatinine secondary to use of Bactrim Hold off on metformin and Januvia Attestations Medical Necessity Statement*: For gas gangrene patient needs surgical intervention IV antibiotics, more than 2 midnights anticipated Diagnoses Gas gangrene A48.0 Type 2 diabetes mellitus without complication, without long-term current use of insulin E11.9 Diabetes mellitus complication status: without complication Diabetes mellitus ferry terminal agent insulin use: without ferry terminal agent use Essential hypertension I10 Cellulitis L03.90
[2023-12-29 12:46] LABS: Alanine Aminotransferase 24 U/L (0-41); Albumin Level 4.1 g/dL (3.5-5.2); Alkaline Phosphatase 103 U/L (40-130); Aspartate Amino Transferase 21 U/L (0-40); Blood Urea Nitrogen 23 mg/dL (8-23); Calcium 9.3 mg/dL (8.5-10.5); Carbon Dioxide 24 mmol/L (22-29); Chloride 99 mmol/L (98-107); Creatinine Clr Calc Pharmacy 63.8922; Globulin 3.7 g/dL (1.3-4.6); Glucose 125 mg/dL (65-115); Osmolality Calculated 289 mOsm/kg (285-295); Sodium 137 mmol/L (136-145); Total Bilirubin 0.2 mg/dL (0.15-1.2); Total Protein 7.8 g/dL (6.6-8.7)
[2023-12-29 12:47] LABS: Lactic Sepsis W/Reflex 3.7 mmol/L (0.5-2.2)
[2023-12-29 13:07] LABS: C Reactive Protein 21.2 mg/L (0.0-4.9)
[2023-12-29] MEDS: sodium chloride 0.9% 2,190 ML 2190 ML IV (13:17)
[2023-12-29 13:29] LABS: D Dimer 1.46 ug/mLFEU (0-0.59)
[2023-12-29 13:30] LABS: Erythrocyte Sedimentation Rate 21 mm/hr (0-10)
[2023-12-29 13:41] LABS: Phosphorus 1.6 mg/dL (2.5-4.5)
--- NOTE | 2023-12-29 13:44 | P.ANESASSM_ITS ---
Pre-Anesthetic Assessment Height/Weight: Height 1.78 m Weight 117.027 kg Temp Pulse Resp BP Pulse Ox O2 Del Method 97.6 F 95 18 99/76 91 Room Air 12/29/23 12:04 12/29/23 12:04 12/29/23 12:04 12/29/23 13:35 12/29/23 13:35 12/29/23 12:04 Preop Diagnosis: Gangrene left great toe Operation Date: 12/29/23 15:00 Proposed Procedures p Left Great Toe Amputation(Left) - Pj Moeller DPM Familial anesthetic complications: None Was Beta Alice taken within 24 hours: N/A Was Clonidine taken within 24 hours: N/A Last intake: 0700 - eggs and cheese slice Social No alcohol and No tobacco Exam alert, oriented x 3, clear to auscultation bilaterally and regular rate & rhythm Airway Mallampati: Class IV Dentition: other (poor dentition only 6 remains) CV/HEM Hypertension Metabolic Diabetes Mellitus, Hyperlipidemia and Morbid Obesity Anesthetic Plan ASA status: 4 Anesthesia: Choice Risk of > 500 ml blood loss (7ml/kg in children): No Medications/Allergies Home Medications Medication Instructions Recorded Confirmed Last Taken Type lisinopril 20 1 tab PO DAILY #90 tabs 04/13/23 12/29/23 12/29/23 Rx mg-hydrochlorothiazide 25 mg tablet metformin 850 mg tablet 850 mg PO BID 90 days #180 tabs 04/13/23 12/29/23 12/29/23 Rx sitagliptin phosphate 25 mg tablet 25 mg PO DAILY #90 tabs 04/13/23 12/29/23 12/28/23 Rx (Januvia) atorvastatin 20 mg tablet 20 mg PO DAILY 90 days #90 tabs 06/16/23 12/29/23 12/29/23 Rx pantoprazole 40 mg tablet,delayed 40 mg PO BEDTIME 12/29/23 12/29/23 12/28/23 History release Allergies Allergy/AdvReac Type Severity Reaction Status Date / Time No Known Allergies Allergy Verified 12/29/23 09:33 Current Medications Generic Name Dose Route Start Last Admin Trade Name Freq PRN Reason Stop Dose Admin Sodium Chloride 2,190 mls @ 2,190 mls/hr 12/29/23 12:53 12/29/23 13:17 Sodium Chloride 0.9% 30 ml/kg infuse over 1 hr (2190 ml) 12/29/23 13:52 2,190 mls/hr IV Administration .Q1H ONE PFSH Anesthesia Medical History Has spouse with disability Essential hypertension Type 2 diabetes mellitus Social History Smoking and tobacco/nicotine status: never used tobacco/nicotine Alcohol intake: never Substance/Drug Use: never Adopted: No Caregiver/support person: No Lives independently: No Household members: spouse Marital status: Current occupational status: retired Do you think of yourself as: Straight/Heterosexual Current gender identity: Male Data Anesthesia 12/29/23 12:06 12/29/23 12:06 Short CBC 12/29/23 Range/Units 12:06 WBC 13.94 H (3.29-11.43) 10^3/uL Hgb 13.20 (11.27-16.99) g/dL Hct 39.4 (37-53) % MCV 90.0 (82-101) fl Plt Count 449 H (157-399) 10^3/cmm Neut % (Auto) 86.5 % Neut # (Auto) 12.07 H (1.8-7.7) 10^3/uL BMP 12/29/23 12:06 Sodium 137 Potassium 5.0 Chloride 99 Carbon Dioxide 24 BUN 23 Creatinine 1.3 H Glucose 125 H Calcium 9.3 Liver Function 12/29/23 Range/Units 12:06 Total Bilirubin 0.2 (0.15-1.2) mg/dL AST 21 (0-40) U/L ALT 24 (0-41) U/L Alkaline Phosphatase 103 (40-130) U/L Albumin 4.1 (3.5-5.2) g/dL Coags 12/29/23 12/29/23 12:06 13:00 ESR 21 H D-Dimer 1.46 H C-Reactive Protein 21.2 H Microbiology 12/29/23 13:00 Blood Culture - Preliminary Blood SPECIMEN COLLECTED 12/29/23 13:05 Blood Culture - Preliminary Blood SPECIMEN COLLECTED Cardiac Studies: 2 No Data to Display
[2023-12-29 14:02] LABS: Reflex Lactate Order REFLEX LACTIC ORDERD
[2023-12-29 14:46] LABS: Lactic Acid level (Lactate) 2.3 mmol/L (0.5-2.2)
--- NOTE | 2023-12-29 15:00 | P.OP_ITS ---
Operative Report Date of procedure: December 29, 2023 Pre-op diagnosis: Diabetic foot infection left great toe. Acute osteomyelitis distal phalanx left great toe. Gas gangrene left great toe. Post-op diagnosis: Same Procedure done: Left great toe amputation. CPT code 25314 Implants: 3-0 Vicryl, 4-0 nylon Specimens removed/disposition: Bone distal phalanx left great toe sent to microbiology for Gram stain, culture and sensitivity. Pathology: Left great toe sent to pathology for permanent. Surgeon: Pj Moeller DPM Inspector And Unloader: JOSE Estimated blood loss: 10 cc 19 minutes IV fluids: 0 Urine output: 0 Complications: None Brief History: Boy Pablo is a 73 year old male directed to the emergency department by his primary care due to worsening of a left great toe diabetic ulceration which failed outpatient wound care and outpatient antibiotics. Was prescribed Bactrim DS on 12/21/2023 he has had a worsening of redness, swelling and foul odor to the left great toe. Patient last ate breakfast this morning at 7:00 AM. Patient denies any subjective nausea, vomiting, fever, chills, shortness of breath or chest pain. Admitted to hospital service for surgical intervention. Labs in ED WBC 13.94, ESR 21 CRP 21.2 mg/L temperature 97.6. X-ray left foot 3 views taken in emergency department lateral view shows soft tissue of eczema plantar tuft of left hallux. Oblique view of left hallux at the medial condyle shows bony destruction with fragmentation consistent with acute osteomyelitis. Patient examined and evaluated, findings and treatment options discussed with patient at length. Discussed limb salvage consisting of surgical debridement, bone culture, likely PICC line and wound care clinic versus left hallux amputation. Patient after discussing risks and benefits of each option would like to proceed with a more aggressive amputation at today's visit his thoughts are that this would be better source control and give him increased chance of avoiding ascending infection into the foot which ultimately could lead to higher level of amputation. I reviewed at length with the patient, the risks, potential complications, benefits, alternatives, expectations, and typical outcomes associated with the surgery. The risks and potential complications were explained in detail, including but not limited to infection, wound dehiscence or soft tissue complications, bleeding and hematoma, chronic edema, neuritis or nerve damage producing numbness or chronic pain, CRPS, failure to relieve pain or worsening pain, thick / painful / unsightly scar, limited motion / stiffness, malposition, delayed union, malunion, or nonunion, fracture, reaction to implants, anesthetic complications, venous thromboembolism, and deformity recurrence. I discussed the notion of no regrets with the patient as it pertains to complications and outcomes. The patient seemed to understand the nature of the proposed care and required convalescence. They asked appropriate questions, answered to their satisfaction. They are aware no guarantees can be made as to a satisfactory outcome and they understand there may be other possible unforeseen complications or outcomes not listed here that will be treated accordingly if they arise. There were no written or implied guarantees given to the patient. They gave informed consent to proceed. Procedure: Under mild sedation patient was brought to the operating room remained on the gurney in supine position. A timeout was performed. Anesthesia was then administered by the anesthesia service. Local anesthesia was injected by myself consisting of 30 cc of 1% lidocaine plain and a left male block fashion. Well- padded pneumatic tourniquet applied to the left ankle. Left lower extremity was scrubbed, prepped and draped utilizing normal aseptic technique. Left foot was elevated and left ankle tourniquet inflated to 250 mmHg. Attention was directed to the left great toe where previously documented wounds both dorsal medial at the hallux interphalangeal joint and plantar tuft were appreciated these probes directly to bone with foul smelling odor and purulent drainage. Crepitus was appreciated with palpation of the distal tuft of the left great toe. Tennis racquet incision was performed circumferentially full- thickness down through left first metatarsal phalangeal joint with a #10 blade and the left great toe was disarticulated through the left first metatarsal phalangeal joint sharply and passed from operative field. Bone culture of the distal phalanx sent to microbiology for Gram stain, culture and sensitivity. Remaining left great toe sent to pathology for permanent. Incision was irrigated with copious amounts of sterile skin solution, bleeders were ligated and cauterized as necessary. After copious amounts of sterile saline solution irrigation the first metatarsal head was visualized and had appropriate density and color without signs of infection. Soft tissue at the level amputation seemed appropriate and viable for closure. Closure was then performed with deep tissues including fascia reapproximated with 3-0 Vicryl and skin with 4-0 nylon. Incision was dressed with Adaptic, sterile 4 x 4's, Kerlix and Tato wrap followed by application of postop shoe to the left foot. Tourniquet was deflated and a prompt hyperemic response is noted to the distal digits of the left foot 2 through 5. Patient tolerated the procedure and anesthesia well and was transferred to the PACU with vital signs stable and vascular status intact. Following a period of postoperative monitoring patient will be transferred to the floor. Will monitor him daily and assess for clinical improvement at surgical site in regards of soft tissue infection anticipating 2-week oral antibiotics on discharge home once improvement is appreciated clinically.
[2023-12-29] MEDS: lidocaine 1% INJ 10 mL (per mL) 30 ML XX (15:30)
--- NOTE | 2023-12-29 16:10 | ANE.PACU2 ---
Inpatient post-anesthesia follow up: Airway intact: Yes Vital signs: Temperature 98.0 F Pulse Rate 84 Respiratory Rate 16 Blood Pressure 101/56 Pulse Oximetry 95 Oxygen Delivery Me thod Room Air Oxygen Flow Rate Fraction of Inspir ed Oxygen Hydration adequate: Yes Nausea and vomiting: No Pain level: 1 Mental status: Baseline
[2023-12-29 17:08] LABS: Glucose Point of Care 117 mg/dL (70-110)
[2023-12-29 17:57] LABS: Vitamin B12 188 pg/mL (232-1245)
[2023-12-29] MEDS: clindamycin 900 MG/50 ML PREMIX 100 MG IV (17:58)
[2023-12-29] MEDS: sodium chloride 0.9% 1,000 ML 75 ML IV (17:58)
[2023-12-29] MEDS: piperacillin-tazobactam 3.375 GM in sodium chloride 0.9% (plus) 50 ML IV (18:06)
[2023-12-29 19:17] LABS: Estmated Average Glucose 197; Hemoglobin A1C 8.5 % (4.0-6.0)
[2023-12-29] MEDS: morphine IR 15 mg Tablet PO (19:42)
[2023-12-29 20:44] LABS: Glucose Point of Care 194 mg/dL (70-110)
[2023-12-29] MEDS: morphine 4 mg/mL SDV 1 mL 2 MG IVP (22:45)
[2023-12-30] VITALS (8 sets, daily range): BP systolic 91–112; BP diastolic 52–68; PULSE 68–95; RESP 14–19; TEMP 36.6–36.7; O2SAT 91–96
[2023-12-30] MEDS: clindamycin 900 MG/50 ML PREMIX 100 MG IV (01:27)
[2023-12-30] MEDS: piperacillin-tazobactam 3.375 GM in sodium chloride 0.9% (plus) 50 ML IV ×3 (02:04→17:34)
[2023-12-30] MEDS: morphine IR 15 mg Tablet PO (02:05)
[2023-12-30 04:02] LABS: Add Urine Microscopic? NO; Charge for UA Resulting for Rev
[2023-12-30 04:04] LABS: Bilirubin Urine Neg (Negative); Blood Urine Neg (Negative); Glucose Urine UA Norm (Normal); Ketones Urine Negative (Negative); Leukocyte Esterase Urine Negative (Negative); Nitrate Urine Negative (Negative); Protein Urine Neg (Negative); Specific Gravity, Urine 1.005 (1.005-1.030); Urine Appearance Clear (CLEAR); Urine Color Yellow (Yellow); Urobilinogen Urine Neg (Negative); pH Urine 5 (5-7)
[2023-12-30 05:38] LABS: Basophils % 0.4 %; Eosinophils % 0.3 %; Hematocrit 37.9 % (37-53); Lymphocytes # 1.6 10^3/uL (0.8-4.8); Lymphocytes % 16.6 %; Mean Corpuscular HGB Conc 32.5 g/dL (30-55); Mean Corpuscular Hemoglobin 29.9 pg (27-33); Monocytes # 0.6 10^3/uL (0.2-0.9); Monocytes % 5.9 %; Neutrophils # 7.11 10^3/uL (1.8-7.7); Neutrophils % 75.6 %; Nucleated Red Blood Cells % 0 %; Platelet Count 358 10^3/cmm (157-399); Red Blood Count 4.12 10^6/uL (3.85-5.65); Red Cell Distribution Width 13.5 % (12.1-15.1)
[2023-12-30 05:59] LABS: Anion Gap 13.7 (5-19); Blood Urea Nitrogen 16 mg/dL (8-23); C Reactive Protein 27.8 mg/L (0.0-4.9); Carbon Dioxide 28 mmol/L (22-29); Chloride 103 mmol/L (98-107); Creatinine Clr Calc Pharmacy 69.3691; Glucose 147 mg/dL (65-115); Magnesium 1.4 mg/dL (1.7-2.3); Osmolality Calculated 294 mOsm/kg (285-295); Phosphorus 3.5 mg/dL (2.5-4.5); Potassium 4.7 mmol/L (3.5-5.1); Sodium 140 mmol/L (136-145)
[2023-12-30 06:30] LABS: Glucose Point of Care 137 mg/dL (70-110)
[2023-12-30] MEDS: sennosides-docusate Tablet 1 TAB PO (08:16)
[2023-12-30] MEDS: sodium chloride 0.9% 1,000 ML 75 ML IV (08:16)
[2023-12-30] MEDS: vancomycin 1,750 MG/350 ML PIGGYBACK 233.33 MG IV (08:16)
--- NOTE | 2023-12-30 08:37 | PM.PN ---
Subjective Subjective: Patient seen bedside this a.m., he is 1 day status post left great toe amputation secondary to gangrene. Patient denies any acute events overnight. Tolerating regular diet. He is performing short transfers with postop shoe to the bathroom otherwise he is resting and elevating. Receiving empiric IV antibiotics. Vitals/I&O/Wt Last Vital Signs Temp 98.0 F 12/30/23 08:00 Pulse 84 12/30/23 08:00 Resp 16 12/30/23 08:00 BP 101/56 12/30/23 08:00 Pulse Ox 95 12/30/23 08:00 O2 Del Method Room Air 12/30/23 08:00 12/29/23 12/30/23 12/30/23 22:59 06:59 14:59 Intake Total 2780.000 / 2780.000 665 / 3445.000 435 / 435 Output Total 310 / 310 175 / 485 400 / 400 Balance 2470.000 / 2470.000 490 / 2960.000 35 / 35 Weight last 48 hrs Weight 259 lb 1.6 oz Weight 258 lb Weight 258 lb Physical Exam Narrative: GENERAL: Patient is alert and oriented ?3 and in no acute distress. The following is a focused bilateral lower extremity exam. VASCULAR: Dorsalis pedis palpable bilaterally. Posterior tibial arteries palpable. Capillary refill less than 5 seconds to the left second toe and to the right great toe, delayed left hallux. Calf is supple and nontender proximally and distally. Left lower extremity pitting edema present. NEUROLOGICAL: Protective sensation intact 0/10 sites, tested with [place] Anabel monofilament to bilateral feet. DERMATOLOGICAL: Incision at left great toe amputation site is coapted with sutures intact, no purulence, vashti-incisional erythema is present. MUSCULOSKELETAL: Status post left great toe amputation. Data 12/30/23 05:06 12/30/23 05:06 Micro: Microbiology 12/29/23 15:36 Gram Stain - Final Toe - #1 12/29/23 13:00 Blood Culture - Preliminary Blood SPECIMEN COLLECTED 12/29/23 13:05 Blood Culture - Preliminary Blood SPECIMEN COLLECTED A&P Assessment and plan (1) Diabetic peripheral neuropathy associated with type 2 diabetes mellitus: (2) Acute osteomyelitis of left foot: (3) Cellulitis: Qualifiers: Laterality: left Site of cellulitis: extremity Site of cellulitis of extremity: toe Qualified Code(s): L03.032 - Cellulitis of left toe (4) Gas gangrene: Plan 1 day status post left great toe amputation secondary to gangrene. Residual erythema at the left foot necessitating continued hospitalization and continuation of empiric IV antibiotics. Will continue to monitor daily, discharge planning home on oral antibiotics once clinical improvement is appreciated. Recommend continuing empiric antibiotics. Antibiotic selection at discharge guided by surgical cultures. Attestations Medical Necessity Statement*: Status post left great toe amputation performed 12/29/2023 secondary to gangrene. Patient requires continued hospitalization, has residual erythema at the amputation site requiring continued IV antibiotics and wound care daily until clinical proven is seen, anticipating discharging home on oral antibiotics once clinical improvement is appreciated. Coding Level of Care Code Acute Code for [facility] Diagnoses Diabetic peripheral neuropathy associated with type 2 diabetes mellitus E11.42 Acute osteomyelitis of left foot M86.172 Cellulitis of toe of left foot L03.032 Laterality: left Site of cellulitis: extremity Site of cellulitis of extremity: toe Gas gangrene A48.0
--- NOTE | 2023-12-30 09:02 | PC.NURSE ---
Dr. Moeller at bedside, and performs dressing change.
--- NOTE | 2023-12-30 09:54 | P.PN_ITS ---
Subjective 2 Subjective: Postop day 1 Afebrile Leukocytosis Status post creation of left great toe Patient with Dr. Moeller's recommendation Our plan is to discharge him on oral 14-day regimen once he is cleared by Dr. Moeller Will still have erythema around surgical site Continue IV antibiotics for now Patient not complaining active pain, No BM yet Vitals/I&O/Wt Last Vital Signs Temp 98.0 F 12/30/23 08:00 Pulse 84 12/30/23 08:00 Resp 16 12/30/23 08:00 BP 101/56 12/30/23 08:00 Pulse Ox 95 12/30/23 08:00 O2 Del Method Room Air 12/30/23 08:00 12/29/23 12/30/23 12/30/23 22:59 06:59 14:59 Intake Total 2780.000 / 2780.000 665 / 3445.000 1025 / 1025 Output Total 310 / 310 175 / 485 400 / 400 Balance 2470.000 / 2470.000 490 / 2960.000 625 / 625 Weight last 48 hrs Weight 117.526 kg Weight 117.027 kg Weight 117.027 kg Physical Exam 2 Narrative: Awake and alert Erythema around surgical site Covered in dressing Awake and alert nonfocal neuroexam Laying supine Currently on room air Hemodynamically stable S1, S2 Abdomen distended nontender Data 12/30/23 05:06 12/30/23 05:06 Micro: Microbiology 12/29/23 15:36 Gram Stain - Final Toe - #1 12/29/23 13:00 Blood Culture - Preliminary Blood SPECIMEN COLLECTED 12/29/23 13:05 Blood Culture - Preliminary Blood SPECIMEN COLLECTED A&P Assessment and plan (1) Essential hypertension: (2) Type 2 diabetes mellitus: Qualifiers: Diabetes mellitus prison insulin use: without terminal supervisor use Diabetes mellitus complication status: without complication Qualified Code(s): E11.9 - Type 2 diabetes mellitus without complications (3) Diabetic foot ulcer: (4) Cellulitis: Qualifiers: Laterality: left Site of cellulitis: extremity Site of cellulitis of extremity: toe Qualified Code(s): L03.032 - Cellulitis of left toe (5) Gas gangrene: (6) Acute osteomyelitis of left foot: (7) Osteoarthritis (arthritis due to wear and tear of joints): (8) Diabetic peripheral neuropathy associated with type 2 diabetes mellitus: Plan Gas gangrene status post amputation of left great toe Postop day 1 No significant postop complications Osteomyelitis Dr. Moeller's plan to discharge patient on oral antibiotic for 14 days most likely will choose doxycycline Augmentin Will follow-up with culture report Afebrile I will discontinue IV fluids Continue vancomycin and Zosyn discontinue clindamycin Patient not complaining of active pain Erythema noted on surgical margins Afebrile Room air DNR/DNI Hemoglobin A1c 8.5 D-dimer adjusted for age VTE unlikely however will request venous Doppler of left leg Attestations 2 Medical Necessity Statement*: Continue medical management Diagnoses Essential hypertension I10 Type 2 diabetes mellitus without complication, without long-term current use of insulin E11.9 Diabetes mellitus prison insulin use: without terminal supervisor use Diabetes mellitus complication status: without complication Diabetic foot ulcer E11.621; L97.509 Cellulitis of toe of left foot L03.032 Laterality: left Site of cellulitis: extremity Site of cellulitis of extremity: toe Gas gangrene A48.0 Acute osteomyelitis of left foot M86.172 Osteoarthritis (arthritis due to wear and tear of joints) M19.90 Diabetic peripheral neuropathy associated with type 2 diabetes mellitus E11.42
--- NOTE | 2023-12-30 09:57 | USCV_ITS ---
Angelo Pablo Age: 73 Gender: M : 1950 Exam Date: 12/30/2023 11:08 Ordering Phys: Humberto Smith MD Technologist: Exam Location: [facility] – [place] Indication: lt leg swelling PROCEDURES: Venous duplex imaging was performed in only the left lower extremity. The following venous structures were evaluated: common femoral vein, profunda vein, proximal portion of the greater saphenous vein, superficial femoral vein, and the popliteal vein. In addition, the posterior tibial and peroneal trunk were evaluated. FINDINGS: Normal 2-D Doppler and augmentation and compressibility throughout the lower extremity venous structures. Additional imaging through the proximal calf veins also reveals no thrombus. Limited evaluation of the greater saphenous vein is patent with no thrombus. CONCLUSIONS No venous duplex examination of the left lower extremity revealed no evidence of any DVT in the above-mentioned identifiable veins. Dr Eliseo Begum MD [facility] (Electronically Signed) Final Date: 30 December 2023 12:14 S
[2023-12-30 11:36] LABS: Glucose Point of Care 268 mg/dL (70-110)
[2023-12-30] MEDS: insulin lispro 100 unit/1 mL SUBCUT ×2 (11:39→17:34)
[2023-12-30 17:17] LABS: Glucose Point of Care 165 mg/dL (70-110)
[2023-12-30 20:01] LABS: Glucose Point of Care 227 mg/dL (70-110)
[2023-12-31] VITALS (7 sets, daily range): BP systolic 99–126; BP diastolic 58–74; PULSE 59–81; RESP 16–18; TEMP 36.4–37; O2SAT 90–94
[2023-12-31] MEDS: vancomycin 1,750 MG/350 ML PIGGYBACK 233.33 MG IV (01:16)
[2023-12-31 03:13] LABS: Basophils % 0.3 %; Eosinophils # 0.1 10^3/uL (0.0-0.8); Eosinophils % 0.8 %; Hematocrit 36.3 % (37-53); Lymphocytes # 1.6 10^3/uL (0.8-4.8); Lymphocytes % 17.2 %; Mean Corpuscular HGB Conc 32.8 g/dL (30-55); Mean Corpuscular Hemoglobin 30.3 pg (27-33); Mean Corpuscular Volume 92.4 fl (82-101); Monocytes # 0.5 10^3/uL (0.2-0.9); Monocytes % 5.6 %; Neutrophils # 6.79 10^3/uL (1.8-7.7); Neutrophils % 74.5 %; Nucleated Red Blood Cells % 0 %; Platelet Count 351 10^3/cmm (157-399); Red Blood Count 3.93 10^6/uL (3.85-5.65); Red Cell Distribution Width 13.7 % (12.1-15.1); White Blood Count 9.12 10^3/uL (3.29-11.43)
[2023-12-31] MEDS: piperacillin-tazobactam 3.375 GM in sodium chloride 0.9% (plus) 50 ML IV ×3 (03:19→18:20)
[2023-12-31 03:35] LABS: Anion Gap 14.7 (5-19); Blood Urea Nitrogen 14 mg/dL (8-23); Carbon Dioxide 26 mmol/L (22-29); Chloride 103 mmol/L (98-107); Creatinine Clr Calc Pharmacy 83.2429; Glucose 146 mg/dL (65-115); Osmolality Calculated 291 mOsm/kg (285-295); Potassium 4.7 mmol/L (3.5-5.1); Sodium 139 mmol/L (136-145)
[2023-12-31 06:25] LABS: Glucose Point of Care 167 mg/dL (70-110)
--- NOTE | 2023-12-31 08:34 | P.PN_ITS ---
Subjective 2 Subjective: Patient seen bedside this a.m., he is 2 days status post left great toe amputation secondary to gangrene. Patient denies any acute events overnight. Tolerating regular diet. He is performing short transfers with postop shoe to the bathroom otherwise he is resting and elevating. Receiving empiric IV antibiotics. Vitals/I&O/Wt Last Vital Signs Temp 97.5 F L 12/31/23 03:49 Pulse 62 12/31/23 07:02 Resp 18 12/31/23 07:02 BP 118/66 12/31/23 07:02 Pulse Ox 91 12/31/23 07:02 O2 Del Method Room Air 12/31/23 07:02 12/30/23 12/31/23 12/31/23 22:59 06:59 14:59 Intake Total 610 / 2105 550 / 2655 410 / 410 Output Total 200 / 1000 600 / 1600 Balance 410 / 1105 -50 / 1055 410 / 410 Weight last 48 hrs Weight 258 lb Weight 259 lb 1.6 oz Weight 258 lb Weight 258 lb Physical Exam 2 Narrative: GENERAL: Patient is alert and oriented ?3 and in no acute distress. The following is a focused bilateral lower extremity exam. VASCULAR: Dorsalis pedis palpable bilaterally. Posterior tibial arteries palpable. Capillary refill less than 5 seconds to the left second toe and to the right great toe, delayed left hallux. Calf is supple and nontender proximally and distally. Left lower extremity pitting edema present. NEUROLOGICAL: Protective sensation intact 0/10 sites, tested with [place] Anabel monofilament to bilateral feet. DERMATOLOGICAL: Incision at left great toe amputation site is coapted with sutures intact, no purulence, vashti-incisional erythema is present. MUSCULOSKELETAL: Status post left great toe amputation. Data 12/31/23 02:36 12/31/23 02:36 Micro: Microbiology 12/29/23 13:00 Blood Culture - Preliminary Blood NEGATIVE TO DATE 12/29/23 13:05 Blood Culture - Preliminary Blood NEGATIVE TO DATE 12/29/23 15:36 Gram Stain - Final Toe - #1 Tissue Culture - Preliminary Strep species, alpha hemolytic A&P Assessment and plan (1) Diabetic peripheral neuropathy associated with type 2 diabetes mellitus: (2) Acute osteomyelitis of left foot: (3) Cellulitis: Qualifiers: Laterality: left Site of cellulitis: extremity Site of cellulitis of extremity: toe Qualified Code(s): L03.032 - Cellulitis of left toe (4) Gas gangrene: Plan 73-year-old diabetic male is status post left great toe amputation secondary to gangrene. Date of operation 12/21/2023 Surgical cultures left great toe showing strep species, alphahemolytic, sensitivities pending. Mild improvement at left foot erythema, there is still residual erythema localized at the left medial forefoot. Given his clinical picture recommending 1 more day of empiric IV antibiotics and awaiting sensitivities, plan for discharge home tomorrow 14 days oral antibiotics and podiatry clinic follow-up. Nonweightbearing left foot, heel touch for transfers with postop shoe Attestations 2 Medical Necessity Statement*: Angelo Pablo requires continued hospitalization for the administration of empiric intravenous (IV) antibiotics due to a persistent left foot infection. The infection is located at the site of the left great toe amputation, which was performed secondary to gangrene. Despite initial treatment, there is still noticeable erythema at the amputation site, indicating an ongoing infection. It is medically necessary for Mr. Pablo to remain in the hospital to continue receiving empiric IV antibiotics while we await the results of the surgical cultures. These culture results, which are not yet available, will provide essential information to tailor the antibiotic therapy appropriately. Continued hospitalization and IV antibiotic treatment are critical to prevent the spread of infection and to promote healing. This will ensure that Mr. Pablo receives the most effective care based on the pending sensitivities from the cultures. Coding Level of Care Code Acute Code for [facility] Diagnoses Diabetic peripheral neuropathy associated with type 2 diabetes mellitus E11.42 Acute osteomyelitis of left foot M86.172 Cellulitis of toe of left foot L03.032 Laterality: left Site of cellulitis: extremity Site of cellulitis of extremity: toe Gas gangrene A48.0
[2023-12-31] MEDS: insulin lispro 100 unit/1 mL SUBCUT ×2 (08:36→17:02)
[2023-12-31 11:03] LABS: Glucose Point of Care 137 mg/dL (70-110)
--- NOTE | 2023-12-31 13:54 | PM.PN ---
Subjective Subjective: seen this am no acute events overnight would like to go home. says he was seen by podiatry this am Vitals/I&O/Wt Last Vital Signs Temp 98.6 F 12/31/23 10:32 Pulse 59 L 12/31/23 10:32 Resp 18 12/31/23 10:32 BP 99/62 12/31/23 10:32 Pulse Ox 90 12/31/23 10:32 O2 Del Method Room Air 12/31/23 10:32 12/30/23 12/31/23 12/31/23 22:59 06:59 14:59 Intake Total 610 / 2105 550 / 2655 650 / 650 Output Total 200 / 1000 600 / 1600 Balance 410 / 1105 -50 / 1055 650 / 650 Weight last 48 hrs Weight 117.027 kg Weight 117.526 kg Weight 117.027 kg Physical Exam Narrative: Awake and alert Covered in dressing, did not take down as it was changed this am Awake and alert nonfocal neuroexam Laying supine Currently on room air Hemodynamically stable S1, S2 Abdomen distended nontender Data 12/31/23 02:36 12/31/23 02:36 Micro: Microbiology 12/29/23 13:00 Blood Culture - Preliminary Blood NEGATIVE TO DATE 12/29/23 13:05 Blood Culture - Preliminary Blood NEGATIVE TO DATE 12/29/23 15:36 Gram Stain - Final Toe - #1 Tissue Culture - Preliminary Strep species, alpha hemolytic A&P Assessment and plan (1) Essential hypertension: (2) Type 2 diabetes mellitus: Qualifiers: Diabetes mellitus penitentiary insulin use: without computer terminal operator use Diabetes mellitus complication status: without complication Qualified Code(s): E11.9 - Type 2 diabetes mellitus without complications (3) Diabetic foot ulcer: (4) Cellulitis: Qualifiers: Laterality: left Site of cellulitis: extremity Site of cellulitis of extremity: toe Qualified Code(s): L03.032 - Cellulitis of left toe (5) Gas gangrene: (6) Acute osteomyelitis of left foot: (7) Osteoarthritis (arthritis due to wear and tear of joints): (8) Diabetic peripheral neuropathy associated with type 2 diabetes mellitus: Plan Gas gangrene status post amputation of left great toe Postop day 2 No significant postop complications Osteomyelitis Dr. Moeller's plan to discharge patient on oral antibiotic for 14 days most likely will choose doxycycline Augmentin Will follow-up with culture report Afebrile I will discontinue IV fluids Continue vancomycin and Zosyn discontinue clindamycin Patient not complaining of active pain Erythema noted on surgical margins Afebrile Room air DNR/DNI Hemoglobin A1c 8.5 D-dimer adjusted for age VTE unlikely however will request venous Doppler of left leg Todays plan 12/30 - appreciate recs by podiatry - plan to send home in am with 14 days abx - wound care - f/u with podiatry outpatient. Nonweightbearing left foot, heel touch for transfers with postop shoe Attestations Medical Necessity Statement*: Continue medical management Diagnoses Essential hypertension I10 Type 2 diabetes mellitus without complication, without long-term current use of insulin E11.9 Diabetes mellitus computer terminal operator insulin use: without computer terminal operator use Diabetes mellitus complication status: without complication Diabetic foot ulcer E11.621; L97.509 Cellulitis of toe of left foot L03.032 Laterality: left Site of cellulitis: extremity Site of cellulitis of extremity: toe Gas gangrene A48.0 Acute osteomyelitis of left foot M86.172 Osteoarthritis (arthritis due to wear and tear of joints) M19.90 Diabetic peripheral neuropathy associated with type 2 diabetes mellitus E11.42
--- NOTE | 2023-12-31 14:00 | USCV_ITS ---
Angelo Pablo Age: 73 Gender: M : 1950 Exam Date: 12/31/2023 15:15 Ordering Phys: Humberto Smith MD Technologist: Bro Bailey Exam Location: [facility] – [place] Indication: chf BP: 99 / 62 HR: 63 Rhythm: Sinus Technical Quality: Adequate MEASUREMENTS (Male / Female) Normal Values 2D ECHO LV Diastolic Diameter PLAX 5.3 cm 4.2 - 5.9 / 3.9 - 5.3 cm IVS Diastolic Thickness 1.2 cm 0.6 - 1.0 / 0.6 - 0.9 cm IVS Systolic Thickness 2.0 cm LVPW Diastolic Thickness 1.7 cm 0.6 - 1.0 / 0.6 - 0.9 cm LVPW Systolic Thickness 1.9 cm LVOT Diameter 2.1 cm LV Ejection Fraction 2D Teich 62.5 % LV Ejection Fraction MOD 2C 67.4 % LV Ejection Fraction 2C AL 68.7 % LA Diameter 3.7 cm LA Sys Volume AL 48.9 cm cubed LA Sys Volume Index AL 20.0 cm cubed/m squared Aorta at Sinotubular Diameter 2.3 cm IVC Diameter 1.8 cm M-MODE LA Ao Ratio MM 1.2 AV Cusp Separation MM 2.3 cm DOPPLER AV Peak Velocity 159.0 cm/s AV Area Cont Eq vti 2.7 cm squared AV Area Cont Eq pk 2.6 cm squared MV Peak Velocity 100.0 cm/s MV Area PHT 3.9 cm squared Mitral E to A Ratio 0.7 TV Peak Velocity 197.3 cm/s TR Peak Velocity 231.0 cm/s TR Peak Gradient 21.3 mmHg TR Mean Velocity 166.0 cm/s TR Mean Gradient 12.1 mmHg TR Velocity Time Integral 48.2 cm PV Peak Velocity 118.3 cm/s RV Ejection Time 0.3 s FINDINGS Left Ventricle Normal LV size ejection fraction 67%. Mild hypokinesia of the basal inferior wall segment. Mild concentric left ventricular hypertrophy. Right Ventricle The right ventricle is normal in size and function. Right Atrium The right atrium is normal in size. Left Atrium The left atrium is normal in size. Mitral Valve Mild mitral valve regurgitation. Aortic Valve No gross abnormalities noted Tricuspid Valve Mild tricuspid valve regurgitation. Pulmonic Valve Mild pulmonary valve regurgitation. Pericardium Normal pericardium without effusion. Aorta Normal ascending aorta dimension. IVC The inferior vena cava appears normal. CONCLUSIONS Normal LV size ejection fraction 67%. Mild hypokinesia of the basal inferior wall segment. Mild concentric left ventricular hypertrophy. Mild mitral valve regurgitation. tricuspid and pulmonic regurgitation. There is no pericardial effusion. There are no intracardiac masses. No similar previous studies are available for comparison Dr Eliseo Begum MD [facility] (Electronically Signed) Final Date: 31 December 2023 16:58 S
[2023-12-31 16:44] LABS: Glucose Point of Care 209 mg/dL (70-110)
[2023-12-31] MEDS: acetaminophen 500 mg Tablet PO (20:02)
[2023-12-31] MEDS: vancomycin 1,750 MG/350 ML PIGGYBACK 233 MG IV (20:02)
[2023-12-31 21:07] LABS: Glucose Point of Care 168 mg/dL (70-110)
[2024-01-01] VITALS: BP 172/70; PULSE 59; RESP 18; TEMP 36.4; O2SAT 93
[2024-01-01] MEDS: piperacillin-tazobactam 3.375 GM in sodium chloride 0.9% (plus) 50 ML IV ×2 (01:59→09:15)
[2024-01-01 04:00] VITALS: BP 116/69; PULSE 60; RESP 20; TEMP 36.4; O2SAT 93
[2024-01-01 05:47] LABS: Basophils % 0.5 %; Eosinophils # 0.1 10^3/uL (0.0-0.8); Eosinophils % 1.4 %; Hematocrit 42.2 % (37-53); Lymphocytes # 1.7 10^3/uL (0.8-4.8); Lymphocytes % 19.4 %; Mean Corpuscular HGB Conc 30.6 g/dL (30-55); Mean Corpuscular Hemoglobin 29.7 pg (27-33); Mean Platelet Volume 9.6 fL (7.4-10.4); Monocytes # 0.4 10^3/uL (0.2-0.9); Monocytes % 4.9 %; Neutrophils # 6.24 10^3/uL (1.8-7.7); Neutrophils % 72.7 %; Nucleated Red Blood Cells % 0 %; Platelet Count 329 10^3/cmm (157-399); Red Blood Count 4.35 10^6/uL (3.85-5.65); Red Cell Distribution Width 13.5 % (12.1-15.1); White Blood Count 8.57 10^3/uL (3.29-11.43)
[2024-01-01 06:08] LABS: Blood Urea Nitrogen 11 mg/dL (8-23); Carbon Dioxide 21 mmol/L (22-29); Chloride 102 mmol/L (98-107); Creatinine Clr Calc Pharmacy 92.2888; Glucose 151 mg/dL (65-115); Osmolality Calculated 286 mOsm/kg (285-295); Sodium 137 mmol/L (136-145)
[2024-01-01 06:10] LABS: Anion Gap 18.6 (5-19); Potassium 4.6 mmol/L (3.5-5.1)
--- NOTE | 2024-01-01 06:22 | PM.PN ---
Subjective Subjective: Patient seen bedside this a.m., he is 3 days status post left great toe amputation secondary to gangrene. Patient denies any acute events overnight. Tolerating regular diet. He is performing short transfers with postop shoe to the bathroom otherwise he is resting and elevating. Receiving empiric IV antibiotics. Vitals/I&O/Wt Last Vital Signs Temp 97.6 F 01/01/24 04:00 Pulse 60 01/01/24 04:00 Resp 20 H 01/01/24 04:00 BP 116/69 01/01/24 04:00 Pulse Ox 93 01/01/24 04:00 O2 Del Method Room Air 01/01/24 04:00 12/31/23 12/31/23 01/01/24 14:59 22:59 06:59 Intake Total 650 / 650 662.708 / 1312.708 77.292 / 1390.000 Output Total 1050 / 1050 600 / 1650 Balance 650 / 650 -387.292 / 262.708 -522.708 / -260.000 Weight last 48 hrs Weight 260 lb 2 oz Weight 258 lb Physical Exam Narrative: GENERAL: Patient is alert and oriented ?3 and in no acute distress. The following is a focused bilateral lower extremity exam. VASCULAR: Dorsalis pedis palpable bilaterally. Posterior tibial arteries palpable. Capillary refill less than 5 seconds to the left second toe and to the right great toe, delayed left hallux. Calf is supple and nontender proximally and distally. Left lower extremity pitting edema present. NEUROLOGICAL: Protective sensation intact 0/10 sites, tested with [place] Anabel monofilament to bilateral feet. DERMATOLOGICAL: Incision at left great toe amputation site is coapted with sutures intact, no purulence, vashti-incisional erythema improved. MUSCULOSKELETAL: Status post left great toe amputation. Data 01/01/24 05:33 01/01/24 05:33 Micro: Microbiology 12/29/23 15:36 Gram Stain - Final Toe - #1 Tissue Culture - Preliminary A&P Assessment and plan (1) Diabetic peripheral neuropathy associated with type 2 diabetes mellitus: (2) Acute osteomyelitis of left foot: (3) Cellulitis: Qualifiers: Laterality: left Site of cellulitis: extremity Site of cellulitis of extremity: toe Qualified Code(s): L03.032 - Cellulitis of left toe (4) Gas gangrene: Plan 73-year-old diabetic male is status post left great toe amputation secondary to gangrene. Date of operation 12/21/2023 Surgical cultures left great toe showing strep species, alphahemolytic Clinical improvement appreciated at left foot erythema. Nonweightbearing left foot, heel touch for transfers with postop shoe Okay for discharge from podiatry standpoint. No further surgical intervention indicated at this time. 2-week oral antibiotic regimen per hospitalist recommendations. Follow-up in podiatry clinic this Friday, January 05, 2024 11:00 AM. Attestations Medical Necessity Statement*: Status post left great toe amputation secondary to gangrene Coding Level of Care Code Acute Code for [facility] Diagnoses Diabetic peripheral neuropathy associated with type 2 diabetes mellitus E11.42 Acute osteomyelitis of left foot M86.172 Cellulitis of toe of left foot L03.032 Laterality: left Site of cellulitis: extremity Site of cellulitis of extremity: toe Gas gangrene A48.0
[2024-01-01 06:24] LABS: Glucose Point of Care 166 mg/dL (70-110)
[2024-01-01 07:36] VITALS: BP 127/63; PULSE 67; RESP 20; TEMP 36.2; O2SAT 92
[2024-01-01] MEDS: insulin lispro 100 unit/1 mL SUBCUT ×2 (08:30→11:53)
[2024-01-01 09:06] VITALS: PULSE 67; RESP 16; O2SAT 94
--- NOTE | 2024-01-01 10:53 | PC.SOCIAL ---
IMM Update pg 2 of IMM updated and reviewed w/ patient. Copy provided and copy dated, initialed and placed in chart.
--- NOTE | 2024-01-01 10:59 | PM.DCS ---
Discharge Providers Date of Admission: 12/29/23 13:00 Date of Discharge: January 01, 2024 Attending Provider at Admission: Humberto Smith MD Attending Provider at Discharge: Humberto Smith MD Primary Care Provider: BARBIE Melara Diagnoses at Discharge Discharge Diagnosis (1) Diabetic peripheral neuropathy associated with type 2 diabetes mellitus: Status: Acute (2) Acute osteomyelitis of left foot: Status: Acute (3) Cellulitis: Status: Acute Qualifiers: Laterality: left Site of cellulitis: extremity Site of cellulitis of extremity: toe Qualified Code(s): L03.032 - Cellulitis of left toe (4) Gas gangrene: Status: Acute Reason for Visit Reason for Visit: left foot pain Hospital Course Hospital Course 73-year-old male who was admitted for management valuation of 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 Moeller. Surgical cultures showing strep species alphahemolytic erythema around surgical site has improved patient remained afebrile, healthy bone margins, MRI was not requested by Dr. Moeller, he wanted patient to continue p.o. antibiotics for about 2 weeks with outpatient follow-up. Patient is being discharged with stable hemodynamics Hemoglobin A1c is 8.5 Patient is on metformin and Januvia Physical Exam Narrative: Pleasant cooperative and healthy bone margins Color left foot dressing No active soaking noticed around the dressing Awake and alert hemodynamically stable Discharge Data Studies Completed and Pending Completed Studies During Hospitalization Category Date Time Status XR foot LT min 3V* [id number] Stat Exams 12/29/23 11:25 [place] [id number] Routine Ultrasound 12/30/23 09:57 Completed CV. echo complete* [id number] Stat Ultrasound 12/31/23 14:00 Completed US arterial duplex lower extremity LT [CV arterial Ultrasound 12/29/23 11:25 [place] [id number]] Stat Pending at discharge Category Date Time Status Blood Culture Stat Lab 12/29/23 13:00 Results Tissue Culture and Gram Stain Routine Lab 12/29/23 15:36 Results Vancomycin Trough Timed Lab 01/01/24 13:00 Ordered Pathology: Surgical [PTH] Routine Pth 12/29/23 15:40 Received Radiology Impressions Duplex Scan Lower Extremity Artery 12/29/23 11:25 IMPRESSION: No sign of hemodynamically significant arterial stenosis in the left lower extremity. Foot X-Ray 12/29/23 11:25 IMPRESSION: 1. Soft tissue swelling and ulceration of the great toe with a small amount of soft tissue air. This would suggest infection that may be secondary to gas-forming bacteria. No definite cortical destruction noted but there is some demineralization of bone of the distal tuft. 2. Mild degenerative changes. No fracture. Laboratory Results WBC 8.57 10^3/uL (3.29-11.43) 01/01/24 05:33 RBC 4.35 10^6/uL (3.85-5.65) 01/01/24 05:33 Hgb 12.90 g/dL (11.27-16.99) 01/01/24 05:33 Hct 42.2 % (37-53) 01/01/24 05:33 MCV 97.0 fl (82-101) 01/01/24 05:33 MCH 29.7 pg (27-33) 01/01/24 05:33 MCHC 30.6 g/dL (30-55) D 01/01/24 05:33 RDW 13.5 % (12.1-15.1) 01/01/24 05:33 Plt Count 329 10^3/cmm (157-399) 01/01/24 05:33 MPV 9.6 fL (7.4-10.4) 01/01/24 05:33 Neut % (Auto) 72.7 % 01/01/24 05:33 Lymph % (Auto) 19.4 % 01/01/24 05:33 [place] % (Auto) 4.9 % 01/01/24 05:33 Eos % (Auto) 1.4 % 01/01/24 05:33 Baso % (Auto) 0.5 % 01/01/24 05:33 Neut # (Auto) 6.24 10^3/uL (1.8-7.7) 01/01/24 05:33 Lymph # (Auto) 1.7 10^3/uL (0.8-4.8) 01/01/24 05:33 [place] # (Auto) 0.4 10^3/uL (0.2-0.9) 01/01/24 05:33 Eos # (Auto) 0.1 10^3/uL (0.0-0.8) 01/01/24 05:33 Baso # (Auto) 0.0 10^3/uL (0.0-0.1) 01/01/24 05:33 Nucleated RBC % (auto) 0 % 01/01/24 05:33 Nucleated RBCs # 0.0 /100WBC 01/01/24 05:33 ESR 21 mm/hr (0-10) H 12/29/23 12:06 D-Dimer 1.46 ug/mLFEU (0-0.59) H 12/29/23 13:00 Sodium 137 mmol/L (136-145) 01/01/24 05:33 Potassium 4.6 mmol/L (3.5-5.1) 01/01/24 05:33 Chloride 102 mmol/L (98-107) 01/01/24 05:33 Carbon Dioxide 21 mmol/L (22-29) L 01/01/24 05:33 Anion Gap 18.6 (5-19) 01/01/24 05:33 BUN 11 mg/dL (8-23) 01/01/24 05:33 Creatinine 0.9 mg/dL (0.7-1.2) 01/01/24 05:33 GFR Calculation Not Reportable 01/01/24 05:33 Glucose 151 mg/dL (65-115) H 01/01/24 05:33 POC Glucose 166 mg/dL (70-110) H 01/01/24 06:19 Estimat Average Glucose 197 12/29/23 12:06 Hemoglobin A1c 8.5 % (4.0-6.0) H 12/29/23 12:06 Calculated Osmolality 286 mOsm/kg (285-295) 01/01/24 05:33 Lactic Acid 3.7 mmol/L (0.5-2.2) H 12/29/23 12:06 Lactic Acid (Sepsis) 2.3 mmol/L (0.5-2.2) H 12/29/23 14:17 Calcium 9.0 mg/dL (8.5-10.5) 01/01/24 05:33 Phosphorus 3.5 mg/dL (2.5-4.5) D 12/30/23 05:06 Magnesium 1.4 mg/dL (1.7-2.3) L 12/30/23 05:06 Total Bilirubin 0.2 mg/dL (0.15-1.2) 12/29/23 12:06 AST 21 U/L (0-40) 12/29/23 12:06 ALT 24 U/L (0-41) 12/29/23 12:06 Alkaline Phosphatase 103 U/L (40-130) 12/29/23 12:06 C-Reactive Protein 27.8 mg/L (0.0-4.9) H 12/30/23 05:06 Total Protein 7.8 g/dL (6.6-8.7) 12/29/23 12:06 Albumin 4.1 g/dL (3.5-5.2) 12/29/23 12:06 Globulin 3.7 g/dL (1.3-4.6) 12/29/23 12:06 Vitamin B12 188 pg/mL (232-1245) L 12/29/23 12:06 Urine Color Yellow (Yellow) 12/30/23 03:55 Urine Appearance Clear (CLEAR) 12/30/23 03:55 Urine pH 5 (5-7) 12/30/23 03:55 Ur Specific [employer] 1.005 (1.005-1.030) 12/30/23 03:55 Urine Protein Neg (Negative) 12/30/23 03:55 Urine Glucose (UA) Norm (Normal) 12/30/23 03:55 Urine Ketones Negative (Negative) 12/30/23 03:55 Urine Blood Neg (Negative) 12/30/23 03:55 Urine Nitrate Negative (Negative) 12/30/23 03:55 Urine Bilirubin Neg (Negative) 12/30/23 03:55 Urine Urobilinogen Neg mg/dL (Negative) 12/30/23 03:55 Ur Leukocyte Esterase Negative (Negative) 12/30/23 03:55 Vitals Last Vital Signs Temp 97.1 F L 01/01/24 07:36 Pulse 67 01/01/24 09:06 Resp 16 01/01/24 09:06 BP 127/63 01/01/24 07:36 Pulse Ox 94 01/01/24 09:06 O2 Del Method Room Air 01/01/24 09:06 Discharge Plan Discharge Patient Disposition: Home Condition: Stable Prescriptions: New tramadol 50 mg tablet 50 mg PO Q6H PRN (Reason: pain) Qty: 10 0RF amoxicillin-pot clavulanate 875-125 mg tablet 1 tab PO BID Qty: 28 0RF doxycycline hyclate 100 mg tablet 100 mg PO BID 14 Days Qty: 28 0RF Continued lisinopril-hydrochlorothiazide 20-25 mg tablet 1 tab PO DAILY Qty: 90 4RF metformin 850 mg tablet 850 mg PO BID 90 Days Qty: 180 4RF Januvia 25 mg tablet 25 mg PO DAILY Qty: 90 4RF Rx Instructions: 340B. PLEASE SEND BY MAIL atorvastatin 20 mg tablet 20 mg PO DAILY 90 Days Qty: 90 4RF pantoprazole 40 mg tablet,delayed release (DR/EC) 40 mg PO BEDTIME Discharge Orders: Discharge Order (Routine); Ordered 01/01/24 Ordered By: Humberto Smith Other Ambulatory Orders: DME: Walker (Order) Location: None Selected Ordered By: Humberto Smith Referrals: Tucker Aragon FNP [Primary Care Provider] - Greyson Ramires FNP [Family Provider] - Discharge Diet: Diabetic Patient Instructions: Acute Wound Care (DC), Toe Amputation (DC), Opioid Safety, Post Anesthesia Care Activity Restrictions/Additional Instructions: Instructions from Dr. Moeller. -Please keep current dressing clean, dry and intact until follow-up visit in podiatry clinic. -Follow-up January 05, 2024 11:00 AM podiatry clinic -Please elevate left foot while resting -Please minimize activity and wear postop shoe at all times when weightbearing. -Surgical site is at risk for dehiscence with excessive standing and walking for the next 2 to 3 weeks. Podiatry clinic [phone] Discharge Attestations Time Spent in Discharge Care*: greater than 30 min Quality Metrics Clinical Quality Measures [ No reported AMI, CVA or VTE this stay] Coding Level of Care Code Acute Code for Chg Fwd Diagnoses Diabetic peripheral neuropathy associated with type 2 diabetes mellitus E11.42 Acute osteomyelitis of left foot M86.172 Cellulitis of toe of left foot L03.032 Laterality: left Site of cellulitis: extremity Site of cellulitis of extremity: toe Gas gangrene A48.0
[2024-01-01 11:11] LABS: Glucose Point of Care 220 mg/dL (70-110)
[2024-01-01 11:39] VITALS: BP 132/73; PULSE 66; RESP 20; TEMP 36.3; O2SAT 93
[2024-01-01 12:48] VITALS: BP 132/73; PULSE 66; RESP 20; TEMP 36.3; O2SAT 93
== END 2024-01-01 12:51 | disposition home or self-care (01) | DRG 616 ==
LOC: ER 12:42 → MEDSURG 13:00
PROVIDERS: Internal Medicine; Podiatrist Foot & Ankle Surgery; Admitting Provider Internal Medicine; Emergency Provider Family Medicine; Family Provider Nurse Practitioner Family; PCP Registered Nurse; Visit Provider Internal Medicine
PROC: 0Y6Q0Z0 Detachment at Left 1st Toe, Complete, Open Approach (ICD-10-PCS; principal; 2023-12-29 15:00)
DX: E11.69 Type 2 diabetes mellitus with other specified complication (principal); A48.0 Gas gangrene; E11.52 Type 2 diabetes mellitus with diabetic peripheral angiopathy with gangrene; M86.172 Other acute osteomyelitis, left ankle and foot; Z79.4 Long term (current) use of insulin; M19.90 Unspecified osteoarthritis, unspecified site; Z66 Do not resuscitate; E11.628 Type 2 diabetes mellitus with other skin complications; L03.032 Cellulitis of left toe; E11.42 Type 2 diabetes mellitus with diabetic polyneuropathy; I10 Essential (primary) hypertension; K21.9 Gastro-esophageal reflux disease without esophagitis; E11.621 Type 2 diabetes mellitus with foot ulcer; L97.529 Non-pressure chronic ulcer of other part of left foot with unspecified severity
CPT/HCPCS: 36415; 36416; 73630; 80048; 80053; 81003; 82607; 82962; 83036; 83605; 83735; 84100; 85025; 85378; 85651; 86140; 87040; 87070; 87176; 87205; 88305; 88311; 93005; 93306; 93926; 93971; 96365; 96372; 97161; 99285; J1815; J2270; J2543; J2704; J3370; J3372; J3490; J7030; J7050; L3260

== ENCOUNTER → 2024-01-19 11:15 | Outpatient (BNVA) | payer MEDICARE, SELFPAY | PROVIDERS: Family Provider Nurse Practitioner Family; PCP Registered Nurse; Visit Provider Podiatrist Foot & Ankle Surgery | DX: E11.42 Type 2 diabetes mellitus with diabetic polyneuropathy; M21.41 Flat foot [pes planus] (acquired), right foot; M21.42 Flat foot [pes planus] (acquired), left foot; Z79.84 Long term (current) use of oral hypoglycemic drugs | CPT/HCPCS: 99213 ==

== ENCOUNTER → 2024-07-04 08:38 | Outpatient (BNVA) | payer MEDICARE, SELFPAY | PROVIDERS: Family Provider Nurse Practitioner Family; PCP Registered Nurse; Visit Provider Registered Nurse | DX: E11.9 Type 2 diabetes mellitus without complications (principal) | CPT/HCPCS: 80048; 82607; 83036; 85025 ==

== ENCOUNTER → 2025-03-25 14:42 | Outpatient (BNVA) | payer MEDICARE, SELFPAY | PROVIDERS: Family Provider Nurse Practitioner Family; PCP Registered Nurse; Visit Provider Registered Nurse | DX: E11.9 Type 2 diabetes mellitus without complications (principal); R60.0 Localized edema | CPT/HCPCS: 80053; 80061; 83036; 83880; 85025 ==